=== PATIENT | female | born 1990 | race Caucasian/White ===

== ENCOUNTER 2021-04-20 11:20 | Emergency (ER) | payer MEDICAID ==
[~2021-04-20] VITALS: Ht 160 cm; Wt 80.0 kg
[2021-04-20] MEDS ORDERED: ASPIRIN 325MG EC TABLET PO ONE ×2 (12:45→13:15)
[2021-04-20 13:26] LABS: EOSINOPHILS % 1.9 % (0.0-5.0); HEMATOCRIT. 39.5 % (36.0-48.0); HEMOGLOBIN. 13.4 g/dL (12.0-16.0); LYMPHOCYTES % 30.5 % (20.0-50.0); MEAN CORPUSCULAR HEMOGLOBIN 27.9 pg (28.0-32.0); MEAN CORPUSCULAR VOLUME 82.3 fL (81.0-99.0); MEAN PLATELET VOLUME 8.4 fl (7.4-10.4); MONOCYTES % 7.7 % (2.0-8.0); NEUTROPHILS % 58.9 % (40.0-76.0); PLATELET 352 x1000/uL (130-400); RED BLOOD CELL COUNT 4.79 mill/uL (4.2-5.4); RED CELL DISTRIBUTION WIDTH 13.4 % (11.6-14.6)
[2021-04-20 13:32] LABS: CHLORIDE 107 mEq/L (98-107)
[2021-04-20 13:41] LABS: HCG SCREEN NEGATIVE
[2021-04-20 14:31] VITALS: BP 115/60
== END 2021-04-20 14:34 | disposition home or self-care (01) ==
LOC: ER 11:20
DX: U07.1 COVID-19 (principal); J06.9 Acute upper respiratory infection, unspecified
CPT/HCPCS: 36415; 71045; 80053; 83880; 84484; 84703; 85025; 93005; 99285; C9803; U0003; U0005

== ENCOUNTER 2022-01-16 22:47 | Emergency (ER) | payer MEDICAID ==
[~2022-01-16] VITALS: Ht 157.5 cm; Wt 72.0 kg
[2022-01-17] MEDS ORDERED: ACETAMINOPHEN 325MG TABLET PO STA (01:43)
[2022-01-17] MEDS ORDERED: SODIUM CHLORIDE 0.9% 1,000 ML IV ONE (01:45)
[2022-01-17 02:07] LABS: BASOPHILS % 0.1 % (0.0-2.0); EOSINOPHILS % 0.1 % (0.0-5.0); HEMATOCRIT. 37.3 % (36.0-48.0); HEMOGLOBIN. 12.8 g/dL (12.0-16.0); LYMPHOCYTES % 9.5 % (20.0-50.0); MEAN CORPUSCULAR VOLUME 84.6 fL (81.0-99.0); MONOCYTES % 6.7 % (2.0-8.0); NEUTROPHILS % 83.6 % (40.0-76.0); PLATELET 198 x1000/uL (130-400); RED CELL DISTRIBUTION WIDTH 14.2 % (11.6-14.6)
[2022-01-17 02:08] LABS: CLARITY URINE CLOUDY (CLEAR); COLOR URINE YELLOW (YELLOW); KETONES URINE NEGATIVE (NEGATIVE); LEUKOCYTE ESTERASE URINE 3+ (NEGATIVE); NITRITE URINE POSITIVE (NEGATIVE); OCCULT BLOOD URINE 2+ (NEGATIVE); PH URINE 5.5 (4.5-8.0); PROTEIN URINE 2+ (NEGATIVE); SPECIFIC GRAVITY URINE 1.013 (1.005-1.030)
[2022-01-17 02:13] LABS: CHLORIDE 108 mEq/L (98-107)
[2022-01-17 02:22] LABS: B-HCG QUANTITATIVE < 1.0 mIU/mL (<3)
[2022-01-17] MEDS ORDERED: CEFTRIAXONE 1 G PREMIX 50 ML IV NR (04:00)
[2022-01-17] MEDS ORDERED: TOPUD MT (05:49)
[2022-01-17] MEDS ORDERED: CEPH500T MT (05:49)
[2022-01-17 06:00] VITALS: BP 119/68
== END 2022-01-17 06:10 | disposition home or self-care (01) ==
LOC: ER 22:47
DX: N39.0 Urinary tract infection, site not specified (principal)
CPT/HCPCS: 36415; 70450; 71045; 80053; 81003; 83605; 84702; 85025; 87040; 87077; 87086; 87186; 96361; 96365; 99285; J0696; J7030

== ENCOUNTER 2022-12-09 15:24 | Emergency (ER) | payer MEDICAID, OTHER ==
[~2022-12-09] VITALS: Ht 162.6 cm; Wt 68.0 kg
[~2022-12-09 15:24] MED LIST: CEPH500T MT; TOPUD MT
[2022-12-09] MEDS ORDERED: IBUPROFEN 400MG TABLET PO ONE (18:30)
[2022-12-09] MEDS ORDERED: IBUP-2028 MT (18:34)
[2022-12-09 19:02] VITALS: BP 141/93
== END 2022-12-09 19:03 | disposition home or self-care (01) ==
LOC: ER 15:24
DX: M54.2 Cervicalgia (principal); V49.40XA Driver injured in collision with unspecified motor vehicles in traffic accident, initial encounter; Y93.89 Activity, other specified; Y92.89 Other specified places as the place of occurrence of the external cause; Y99.8 Other external cause status
CPT/HCPCS: 99282; Z7610

== ENCOUNTER 2024-10-29 20:22 | Emergency (ER) | payer OTHER ==
[~2024-10-29] VITALS: Ht 160 cm; Wt 78.0 kg
[~2024-10-29 20:22] MED LIST changes: +IBUP-2028 MT
[2024-10-29 20:37] VITALS: O2SAT 98
[2024-10-29] MEDS ORDERED: DIPH25TA24 PO (23:12)
[2024-10-29] MEDS ORDERED: EPIN0.3P3 IM (23:12)
[2024-10-29] MEDS: DIPHENHYDRAMINE 25MG CAPSULE PO ONE (23:26)
[2024-10-29] MEDS: DEXAMETHASONE 4MG TABLET PO ONE (23:26)
[2024-10-29] MEDS: FAMOTIDINE 20MG TABLET PO ONE (23:27)
[2024-10-30 00:39] VITALS: BP 129/77; PULSE 92; RESP 19; TEMP 36.6; O2SAT 98
== END 2024-10-30 00:40 | disposition home or self-care (01) ==
LOC: ER 20:22
DX: T78.40XA Allergy, unspecified, initial encounter (principal); Z79.899 Other long term (current) drug therapy; X58.XXXA Exposure to other specified factors, initial encounter
CPT/HCPCS: 99284; J8540; Q0163